=== PATIENT | male | born 1995 | race Native Hawaiian/Other Pacific Islander ===

== ENCOUNTER 2023-07-07 17:44 | Emergency (ER) | payer OTHER ==
[~2023-07-07] VITALS: Ht 172.7 cm; Wt 97.5 kg
--- NOTE | 2023-07-07 18:11 | ED Cough/URI ---
General Chief Complaint: Cough/Cold/Flu Symptoms Stated Complaint: DEEP COUGH, MIGRAINES, SOB Nursing Triage Note: PT AMB TO [facility] 7 WITH CC OF COUGH, SOA AND FATIGUE X 1 WEEK. PT STATES WAS SEEN AT [facility] ON 07/04 FOR SAME CONCERN AND RECIEVED A RX FOR AN ANTIBIOTIC. PT STATES SYMPTOMS HAS INCREASED. NO RESP DISTESS NOTED AT TIME OF TRIAGE Source: patient Exam Limitations: no limitations (GOVIND FLORES APRN) History of Present Illness Date Seen by Provider: Jul 07, 2023 Time Seen by Provider: 17:54 Initial Comments 28-year-old male presents to the ER with complaint of cough, and shortness of breath for the last week and a half. He states that he had 2 negative home COVID tests over the weekend. He went to the [facility] clinic on Thursday. They tested him for strep which was negative. They started him on azithromycin and Tessalon Perles. He is also complaining of a headache behind his eyes. States that he had a similar headache previously when he had influenza A. He reports that his shortness of air is worse with exertion. States it is not too severe, but does state that he has to sit down and rest at times. He reports a mild sore throat as well. Denies fevers, chest pain, abdominal pain, nausea, vomiting, diarrhea, dysuria. Denies any history of lung issues. (GOVIND FLORES APRN) Allergies and Home Medications Allergies Coded Allergies: No Known Drug Allergies (Unverified , 07/07/23) Patient Home Medication List Home Medication List Reviewed: Yes (GOVIND FLORES APRN) Review of Systems Review of Systems Constitutional: see HPI (GOVIND FLORES APRN) Past Gbghxal-Tlqfoo-Rdnolr Hx Patient Social History Tobacco Use?: Yes Smokeless Tobacco Frequency: Current Everyday User Substance use?: No Alcohol Use?: No (GOVIND FLORES APRN) Physical Exam Vital Signs - First Documented 07/07/23 17:54 Temp 36.4 Pulse 87 Resp 16 B/P (MAP) 142/88 (106) Pulse Ox 96 O2 Delivery Room Air (INOCENCIO LAUREN MD) Capillary Refill : Less Than 3 Seconds (GOVIND FLORES APRN) Height: '" Weight: lbs. oz. kg; 32.00 BMI Method: General Appearance: WD/WN, no apparent distress HEENT: pharynx normal Neck: supple, normal inspection Respiratory: lungs clear, normal breath sounds, no respiratory distress, no accessory muscle use Cardiovascular: regular rate, rhythm Extremities: normal range of motion, normal inspection Neurologic/Psychiatric: alert, normal mood/affect Skin: normal color, warm/dry (MARKGOVIND [employer]) Progress/Results/Core Measures Suspected Sepsis SIRS Temperature: Pulse: 87 Respiratory Rate: 16 Laboratory Tests 07/07/23 18:27: White Blood Count 15.0H Blood Pressure 142 /88 Mean: 106 Laboratory Tests 07/07/23 18:27: Creatinine 1.11, Platelet Count 320, Total Bilirubin 0.6 ([facility] Results/Orders Lab Results Laboratory Tests Test 07/07/23 18:05 07/07/23 18:27 Range/Units Influenza Type A (RT-PCR) Not Detected Not Detecte Influenza Type B (RT-PCR) Not Detected Not Detecte SARS-CoV-2 RNA (RT-PCR) Not Detected Not Detecte White Blood Count 15.0 H 4.3-11.0 10^3/uL Red Blood Count 5.28 4.30-5.52 10^6/uL Hemoglobin 16.5 13.3-17.7 g/dL Hematocrit 47 40-54 % Mean Corpuscular Volume 90 80-99 fL Mean Corpuscular Hemoglobin 31 25-34 pg Mean Corpuscular Hemoglobin Concent 35 32-36 g/dL Red Cell Distribution Width 11.7 10.0-14.5 % Platelet Count 320 130-400 10^3/uL Mean Platelet Volume 9.1 9.0-12.2 fL Immature Granulocyte % (Auto) 1 % Neutrophils (%) (Auto) 78 H 42-75 % Lymphocytes (%) (Auto) 14 12-44 % Monocytes (%) (Auto) 6 0-12 % Eosinophils (%) (Auto) 1 0-10 % Basophils (%) (Auto) 0 0-10 % Neutrophils # (Auto) 11.7 H 1.8-7.8 10^3/uL Lymphocytes # (Auto) 2.1 1.0-4.0 10^3/uL Monocytes # (Auto) 0.9 0.0-1.0 10^3/uL Eosinophils # (Auto) 0.1 0.0-0.3 10^3/uL Basophils # (Auto) 0.1 0.0-0.1 10^3/uL Immature Granulocyte # (Auto) 0.1 0.0-0.1 10^3/uL Neutrophils % (Manual) 77 % Lymphocytes % (Manual) 17 % Monocytes % (Manual) 5 % Eosinophils % (Manual) 1 % Blood Morphology Comment NORMAL Sodium Level 135 135-145 MMOL/L Potassium Level 4.4 3.6-5.0 MMOL/L Chloride Level 103 98-107 MMOL/L Carbon Dioxide Level 24 21-32 MMOL/L Anion Gap 8 5-14 MMOL/L Blood Urea Nitrogen 17 7-18 MG/DL Creatinine 1.11 0.60-1.30 MG/DL Estimat Glomerular Filtration Rate 93 BUN/Creatinine Ratio 15 Glucose Level 97 70-105 MG/DL Calcium Level 10.1 8.5-10.1 MG/DL Corrected Calcium 9.7 8.5-10.1 MG/DL Total Bilirubin 0.6 0.1-1.0 MG/DL Aspartate Amino Transf (AST/SGOT) 16 5-34 U/L Alanine Aminotransferase (ALT/SGPT) 21 0-55 U/L Alkaline Phosphatase 75 40-136 U/L Total Protein 8.6 H 6.4-8.2 GM/DL Albumin 4.5 3.2-4.5 GM/DL (INOCENCIO LAUREN MD) Vital Signs/I&O 07/07/23 07/07/23 17:54 19:28 Temp 36.4 Pulse 87 85 Resp 16 20 B/P (MAP) 142/88 (106) 122/82 Pulse Ox 96 98 O2 Delivery Room Air Room Air (INOCENCIO LAUREN MD) Vital Signs/I&O Capillary Refill : Less Than 3 Seconds (GOVIND FLORES APRN) Blood Pressure Mean: 106 Progress Note : Progress Note Patient seen and evaluated, resting comfortably in bed, no acute stress. Based on exam and symptoms, work-up initiated including CBC, CMP, COVID and flu swab, chest x-ray. IV fluids and Toradol ordered. 1919 Labs and chest x-ray reviewed. CBC shows elevated WBC 15.0. Neutrophil percentage slightly elevated 78. CMP grossly normal. COVID and flu negative. Chest x-ray shows no acute cardiopulmonary process. Results discussed with patient. Patient instructed to continue his azithromycin. Elevated white count could be related to a sinus infection. Azithromycin should be able to cover this. Patient is stable for discharge. Discharge instructions and return precautions provided. (GOVIND FLORES APRN) Diagnostic Imaging Diagonstic Imaging: Xray Plain Films/CT/US/NM/MRI: chest Comments [facility], [place] NAME: ISAIAH AHN [facility] REC#: [id number] PT STATUS: REG ER : 1995 PHYSICIAN: GOVIND FLORES APRN ADMIT DATE: 07/07/23/ER Signed Date of Exam:07/07/23 CHEST 1 VIEW, AP/PA ONLY EXAMINATION: Chest 1 view HISTORY: Cough. Shortness of breath. COMPARISON: None available. FINDINGS: The lung volumes are normal. No focal consolidation is seen. No large pleural effusion or pneumothorax is seen. The cardiomediastinal silhouette is normal in size and contour. No acute osseous abnormality is seen. IMPRESSION: 1. No acute pleuroparenchymal process. Dictated by: Dictated on workstation # [id number] Dict: 07/07/231900 Trans: 07/07/231908 [facility] [phone] Interpreted by: DEB MONTOYA DO Electronically signed by: DEB MONTOYA DO 07/07/231908 (GOVIND FLORES APRN) Departure Impression Primary Impression: Upper respiratory infection Disposition: 01 HOME, SELF-CARE Condition: Stable Departure-Patient Inst. Decision time for Depature: 19:20 (GOVIND FLORES APRN) Referrals: [facility] (PCP/Family) Primary Care Physician Patient Instructions: Viral Upper Respiratory Infection, Adult (DC) Add. Discharge Instructions: Continue taking your antibiotic as prescribed. Follow-up with the clinic if your symptoms are not improving. Return for any new, concerning, or worsening symptoms. All discharge instructions reviewed with patient and/or family. Voiced understanding. ATTENDING PHYSICIAN NOTE: I was physically present as attending physician in the emergency department dur ing the care of this patient, but I was not directly involved in the decision making or delivery of care for this patient. (INOCENCIO LAUREN MD) GOVIND FLORES APRN Jul 07, 2023 18:11 INOCENCIO LAUREN MD Jul 10, 2023 06:50
[2023-07-07] MEDS ORDERED: KETOROLAC INJ 15 MG/ML VIAL IVP ONE (18:15)
[2023-07-07] MEDS ORDERED: NS IV 1000 ML 1,000 ML IV SCH (18:15)
[2023-07-07 18:31] LABS: BASOPHILS # (AUTO) 0.1 10^3/uL (0.0-0.1); BASOPHILS % (AUTO) 0 % (0-10); EOSINOPHILS # (AUTO) 0.1 10^3/uL (0.0-0.3); EOSINOPHILS % (AUTO) 1 % (0-10); HEMATOCRIT 47 % (40-54); HEMOGLOBIN 16.5 g/dL (13.3-17.7); LYMPHOCYTES # (AUTO) 2.1 10^3/uL (1.0-4.0); LYMPHOCYTES % (AUTO) 14 % (12-44); MEAN CORPUSCULAR HEMOGLOBIN 31 pg (25-34); MEAN CORPUSCULAR HGB CONC 35 g/dL (32-36); MEAN CORPUSCULAR VOLUME 90 fL (80-99); MEAN PLATELET VOLUME 9.1 fL (9.0-12.2); MONOCYTES # (AUTO) 0.9 10^3/uL (0.0-1.0); MONOCYTES % (AUTO) 6 % (0-12); NEUTROPHILS # (AUTO) 11.7 10^3/uL (1.8-7.8); NEUTROPHILS % (AUTO) 78 % (42-75); PLATELET COUNT 320 10^3/uL (130-400)
[2023-07-07 18:44] LABS: ALBUMIN 4.5 GM/DL (3.2-4.5); POTASSIUM 4.4 MMOL/L (3.6-5.0)
[2023-07-07 18:45] LABS: CALCIUM 10.1 MG/DL (8.5-10.1)
[2023-07-07 18:47] LABS: TOTAL PROTEIN 8.6 GM/DL (6.4-8.2)
[2023-07-07 18:48] LABS: BILIRUBIN,TOTAL 0.6 MG/DL (0.1-1.0)
[2023-07-07 18:50] LABS: CREATININE SERUM 1.11 MG/DL (0.60-1.30)
[2023-07-07 18:51] LABS: EOSINOPHILS % (MANUAL) 1 %; LYMPHOCYTES % (MANUAL) 17 %; MONOCYTES % (MANUAL) 5 %; NEUTROPHILS % (MANUAL) 77 %
[2023-07-07 18:52] LABS: RBC MORPH NORMAL
--- NOTE | 2023-07-07 19:03 | Diagnostic Imaging Report ---
EXAMINATION: Chest 1 view HISTORY: Cough. Shortness of breath. COMPARISON: None available. FINDINGS: The lung volumes are normal. No focal consolidation is seen. No large pleural effusion or pneumothorax is seen. The cardiomediastinal silhouette is normal in size and contour. No acute osseous abnormality is seen. IMPRESSION: 1. No acute pleuroparenchymal process. Dictated by: Dictated on workstation # [id number]
[2023-07-07 19:28] VITALS: BP 122/82
== END 2023-07-07 19:29 | disposition home or self-care (01) ==
LOC: ER 17:51
DX: J06.9 Acute upper respiratory infection, unspecified (principal); F17.290 Nicotine dependence, other tobacco product, uncomplicated
CPT/HCPCS: 36415; 71045; 80053; 85007; 85027; 87636; 96361; 96374